=== PATIENT | female | born 1955 | race Hispanic/Latino ===

== ENCOUNTER → 2018-06-19 | Outpatient (CLI) | payer OTHER | END | disposition home or self-care (01) | LOC: RAH 14:48 | PROVIDERS: ATTEND Internal Medicine | DX: Z12.31 Encounter for screening mammogram for malignant neoplasm of breast (principal) | CPT/HCPCS: 77067 ==

== ENCOUNTER 2019-12-25 15:32 | Inpatient (IN) | payer OTHER, SELFPAY ==
[~2019-12-25] VITALS: Ht 152.4 cm; Wt 62.8 kg
[2019-12-25 17:11] LABS: BASOPHILS % (AUTO) 0.2 % (0.0-5.0); HEMATOCRIT 37.6 % (36-48); LYMPHOCYTES % (AUTO) 17.1 % (21.0-51.0); MEAN CORPUSCULAR HEMOGLOBIN 28.8 pg (27.0-33.0); MEAN CORPUSCULAR HGB CONC 32.4 g/dL (32.0-36.0); MEAN CORPUSCULAR VOLUME 88.9 fL (79-99); MONOCYTES % (AUTO) 6.2 % (3.0-13.0); NEUTROPHILS % (AUTO) 74.8 % (40.0-77.0); PLATELET COUNT (AUTO) 372 K/uL (130-400); RED BLOOD CELL COUNT(AUTO) 4.23 MIL/uL (4.00-5.50); RED CELL DISTRIBUTION WIDTH 13.8 % (11.0-15.5); WHITE BLOOD COUNT (AUTO) 10.9 K/uL (4.8-10.8)
[2019-12-25] MEDS ORDERED: ALBUTEROL INHALER 90MCG/INH IH ONE (17:21)
[2019-12-25 17:27] LABS: RAPID GROUP A STREP NEGATIVE (NEGATIVE)
[2019-12-25 17:31] LABS: CREATININE 0.8 mg/dL (0.5-1.5); POTASSIUM 3.2 mmol/L (3.5-5.1)
[2019-12-25 17:35] LABS: ALBUMIN 3.2 g/dL (3.5-5.0); BILIRUBIN,TOTAL 0.5 mg/dL (0.2-1.0); TOTAL PROTEIN, SERUM 7.8 g/dL (6.0-8.3)
[2019-12-25 17:36] LABS: ABG BASE EXCESS 3.7 mmol/L (-2.0-3.0); ABG HCO3 26.9 mmol/L (21.0-28.0); ABG OXYGEN SATURATION 96.4 % (95.0-99.0); ABG PCO2 37 mmHg (32-45)
[2019-12-25] MEDS ORDERED: AZITHROMYCIN 500MG+NS 250ML 250 ML IV ONE (17:47)
[2019-12-25] MEDS ORDERED: CEFTRIAXONE SODIUM 1 GM ONE (17:48)
[2019-12-25] MEDS ORDERED: ALBUTEROL INHALER 90MCG/INH IH PRN (20:30)
[2019-12-25] MEDS ORDERED: LACTULOSE 20 GM/30 ML UDCUP PO PRN (20:30)
[2019-12-25] MEDS: AZITHROMYCIN 500MG+NS 250ML 250 ML IV SCH (20:30)
[2019-12-25] MEDS ORDERED: ACETAMINOPHEN 325 MG TAB PO PRN ×2 (20:30)
[2019-12-25] MEDS ORDERED: ONDANSETRON HCL 4 MG/2 ML VIAL IV PRN (20:30)
[2019-12-25] MEDS: CEFTRIAXONE SODIUM 1 GM IV SCH (20:30)
[2019-12-25] MEDS: FAMOTIDINE 20MG TAB 20 MG TAB PO SCH (21:00)
[2019-12-25] MEDS ORDERED: FAMOTIDINE/PF 20 MG/2 ML VIAL IV ONE (21:51)
[2019-12-26] VITALS (7 sets, daily range): BP systolic 130–167; BP diastolic 66–89
[2019-12-26 05:53] LABS: BASOPHILS % (AUTO) 0.3 % (0.0-5.0); EOSINOPHILS % (AUTO) 0.3 % (0.0-8.0); HEMATOCRIT 32.9 % (36-48); MEAN CORPUSCULAR HEMOGLOBIN 29.4 pg (27.0-33.0); MEAN CORPUSCULAR HGB CONC 32.2 g/dL (32.0-36.0); MEAN CORPUSCULAR VOLUME 91.4 fL (79-99); MONOCYTES % (AUTO) 7.8 % (3.0-13.0); NEUTROPHILS % (AUTO) 64.8 % (40.0-77.0); PLATELET COUNT (AUTO) 370 K/uL (130-400); WHITE BLOOD COUNT (AUTO) 7.8 K/uL (4.8-10.8)
[2019-12-26 06:07] LABS: CREATININE 0.7 mg/dL (0.5-1.5); POTASSIUM 3.4 mmol/L (3.5-5.1)
[2019-12-26] MEDS: FAMOTIDINE 20MG TAB 20 MG TAB PO SCH ×2 (08:19→20:11)
[2019-12-26] MEDS: ENOXAPARIN SODIUM 40 MG/0.4 ML SYRINGE SQ SCH (08:20)
--- NOTE | 2019-12-26 09:00 | NUR ---
NOTIFIED DR STRINGER ON CONSULT
--- NOTE | 2019-12-26 10:57 | NUR ---
PATIENT AWAKE AND ALERT , DENIES ANY PAIN OR SHORTNESS OF BREATH .SHANTA CONT TO MONITOR
--- NOTE | 2019-12-26 11:00 | NUR ---
HAD NOTIFED DR RUBIN OF CONSULT , PER MD DR GARCIA WILL TAKE CARE OF CONSULT FOR HIM
[2019-12-26] MEDS ORDERED: METHYLPREDNISOLONE SOD SUCC 40MG/ML 1ML IVP SCH (13:00)
[2019-12-26] MEDS ORDERED: POTASSIUM CHLORIDE 20 MEQ ERTAB PO ONE ×2 (13:03→14:10)
[2019-12-26] MEDS: HYDROCHLOROTHIAZIDE 25 MG TABLET PO SCH (13:05)
--- NOTE | 2019-12-26 18:00 | NUR ---
DR HAIRSTON HERE FOR CONSULT
--- NOTE | 2019-12-26 18:05 | NUR ---
cm note met with patient and states resides at home with spouse, independent with ambulation and adls. has nebulizer, pt drives. referral made to [employer], and community resource packet provided to pt. with med [employer] assist information. pt verbalizes understanding. [facility] dc plan is back home. no dc needs. Addendum: 12/26/19 at 1808 by EVONNE CARRION CM Amended: Links added.
[2019-12-26] MEDS: CEFTRIAXONE SODIUM 1 GM IV SCH (20:11)
[2019-12-26] MEDS: AZITHROMYCIN 500MG+NS 250ML 250 ML IV SCH (20:11)
[2019-12-27] MEDS: HYDRALAZINE HCL 20 MG/ML VIAL IV PRN ×2 (00:15→18:12)
[2019-12-27 01:00] VITALS: BP 150/79
[2019-12-27 03:23] VITALS: BP 147/77
[2019-12-27 04:26] LABS: BASOPHILS % (AUTO) 0.1 % (0.0-5.0); EOSINOPHILS % (AUTO) 0.1 % (0.0-8.0); HEMATOCRIT 34.9 % (36-48); LYMPHOCYTES % (AUTO) 18.9 % (21.0-51.0); MEAN CORPUSCULAR HEMOGLOBIN 29.2 pg (27.0-33.0); MEAN CORPUSCULAR HGB CONC 32.7 g/dL (32.0-36.0); MEAN CORPUSCULAR VOLUME 89.3 fL (79-99); MONOCYTES % (AUTO) 7.1 % (3.0-13.0); NEUTROPHILS % (AUTO) 72.1 % (40.0-77.0); PLATELET COUNT (AUTO) 425 K/uL (130-400); RED BLOOD CELL COUNT(AUTO) 3.91 MIL/uL (4.00-5.50); RED CELL DISTRIBUTION WIDTH 13.6 % (11.0-15.5); WHITE BLOOD COUNT (AUTO) 7.2 K/uL (4.8-10.8)
[2019-12-27 04:40] LABS: CARBON DIOXIDE 25 mmol/L (21-32); CHLORIDE 105 mmol/L (101-111); CREATININE 0.6 mg/dL (0.5-1.5); GLOMERULAR FILTR. RATE CALC 107 mL/min (>60); GLUCOSE,RANDOM 126 mg/dL (70-105); PHOSPHORUS 3.3 mg/dL (2.5-4.9); POTASSIUM 3.7 mmol/L (3.5-5.1); SODIUM SERUM 140 mmol/L (136-145); UREA NITROGEN, BLOOD 12 mg/dL (7-18)
[2019-12-27 04:48] LABS: B-TYPE NATRIURETIC PEPTIDE 85 pg/mL (0-100)
--- NOTE | 2019-12-27 05:37 | NUR ---
0500: NOTIFIED OF CRITICAL D-DIMER RESULT OF 695 BY LAB 0515: HOSPITALIST YENNI PAGED BY ACETYLENE GAS COMPRESSOR Addendum: 12/27/19 at 0551 by SILVINO TENORIO RN RN 0545: HOSPITALIST YENNI, AJ, RETURNED CALL. NOTIFIED OF CRITICAL RESULT. ORDER FOR CT ANGIO-CHEST WITH PE PROTOCOL DUE TO ELEVATED D-DIMER
[2019-12-27] MEDS: FAMOTIDINE 20MG TAB 20 MG TAB PO SCH ×2 (08:09→20:00)
[2019-12-27] MEDS: HYDROCHLOROTHIAZIDE 25 MG TABLET PO SCH (08:09)
[2019-12-27] MEDS: ENOXAPARIN SODIUM 40 MG/0.4 ML SYRINGE SQ SCH (08:10)
[2019-12-27 08:29] VITALS: BP 162/84
[2019-12-27 11:52] VITALS: BP 159/72
[2019-12-27] MEDS ORDERED: IOHEXOL 350 MG/ML 100ML INFUS..BTL IV ONE (12:01)
[2019-12-27 17:02] VITALS: BP_SYST 124; BP_SYST 178; BP_DIAS 72; BP_DIAS 88
[2019-12-27 19:31] VITALS: BP 159/71
[2019-12-27] MEDS: AZITHROMYCIN 500MG+NS 250ML 250 ML IV SCH (20:00)
[2019-12-27] MEDS: CEFTRIAXONE SODIUM 1 GM IV SCH (20:00)
[2019-12-28] VITALS: BP 146/85
[2019-12-28 04:00] VITALS: BP 146/86
[2019-12-28 05:26] LABS: BASOPHILS % (AUTO) 0.3 % (0.0-5.0); LYMPHOCYTES % (AUTO) 24.7 % (21.0-51.0); MEAN CORPUSCULAR HEMOGLOBIN 28.9 pg (27.0-33.0); MEAN CORPUSCULAR HGB CONC 32.2 g/dL (32.0-36.0); MEAN CORPUSCULAR VOLUME 89.8 fL (79-99); MONOCYTES % (AUTO) 7.8 % (3.0-13.0); NEUTROPHILS % (AUTO) 64.5 % (40.0-77.0); PLATELET COUNT (AUTO) 489 K/uL (130-400); RED BLOOD CELL COUNT(AUTO) 4.01 MIL/uL (4.00-5.50); RED CELL DISTRIBUTION WIDTH 13.9 % (11.0-15.5); WHITE BLOOD COUNT (AUTO) 7.2 K/uL (4.8-10.8)
[2019-12-28 05:48] LABS: CREATININE 0.8 mg/dL (0.5-1.5); POTASSIUM 3.4 mmol/L (3.5-5.1)
[2019-12-28] MEDS ORDERED: LIDOCAINE HCL-MPF 1% 2ML VIAL IJ PRN (06:00)
[2019-12-28] MEDS ORDERED: POTASSIUM CHLORIDE 20 MEQ ERTAB PO PRN (06:00)
[2019-12-28] MEDS ORDERED: POTASSIUM CHLORIDE 10% ELIXIR 20 MEQ/15 ML UDCUP PO PRN (06:00)
[2019-12-28] MEDS ORDERED: POTASSIUM CHLORIDE 20MEQ/100ML 100 ML IV PRN (06:00)
--- NOTE | 2019-12-28 07:02 | NUR ---
0563: GLAZING MACHINE OPERATOR, MAGDALENA MONTGOMERY, PAGED BY SATELLITE DISH INSTALLER 7138: GLAZING MACHINE OPERATOR RETURNED CALL. NOTIFIED OF POTASSIUM:3.4. GLAZING MACHINE OPERATOR ORDERS TO INITIATE HYPOKALEMIA PROTOCOL.
[2019-12-28] MEDS: HYDROCHLOROTHIAZIDE 25 MG TABLET PO SCH (07:46)
[2019-12-28] MEDS: FAMOTIDINE 20MG TAB 20 MG TAB PO SCH (07:46)
[2019-12-28] MEDS: ENOXAPARIN SODIUM 40 MG/0.4 ML SYRINGE SQ SCH (07:47)
--- NOTE | 2019-12-28 08:00 | NUR ---
ASSESSMENT PT IS AAOX3 DENIES CP DENIES SOB DENIES NV NO COMPLAINTS AMBULATING IN ROOM. CALL LIGHT WITHIN REACH.
[2019-12-28 08:28] VITALS: BP 162/79
[2019-12-28] MEDS ORDERED: LEVO500T2 PO (11:19)
[2019-12-28 11:21] VITALS: BP 153/79
--- NOTE | 2019-12-28 13:30 | NUR ---
DISCHARGE INSTRUCTIONS GIVEN TO PATIENT, VERBALIZED UNDERSTANDING. AGREES TO SELF ISOLATE ORDERED, AGREES TO FOLLOW UP WITH PMD. AGREES TO TAKE MEDS ORDERED. PIV REMOVED CATH TIP INTACT. ALL BELONGINGS GATHERED, ALL QUESTIONS ANSWERED. AWAITING RIDE.
--- NOTE | 2019-12-28 13:30 | NUR ---
DOWN VIA WC TO VEHICLE
[2019-12-28 17:00] VITALS: BP 126/81
== END 2019-12-28 13:56 | disposition home or self-care (01) | DRG 999 ==
LOC: EDH 15:32 → EDHIP 15:33 → 2DH 12-26 00:57
PROVIDERS: ADMIT Internal Medicine; ATTEND Internal Medicine
DX: U07.1 COVID-19 (principal); J12.89 Other viral pneumonia; J98.11 Atelectasis; I10 Essential (primary) hypertension; Z90.710 Acquired absence of both cervix and uterus
CPT/HCPCS: 36415; 36600; 71045; 71275; 80048; 80053; 82550; 82728; 82803; 83605; 83735; 83880; 84100; 84145; 84484; 85025; 85378; 86140; 87040; 87633; 87635; 87804; 87880; 93005; G0378; J0360; J0456; J0696; J1650; J2920; J3490; Q9967

== ENCOUNTER → 2021-10-05 | Outpatient (CLI) | payer OTHER ==
[~2021-10-05] MED LIST: LEVO500T2 PO
== END | disposition home or self-care (01) ==
LOC: RAH 15:24
PROVIDERS: ATTEND Internal Medicine
DX: Z12.31 Encounter for screening mammogram for malignant neoplasm of breast (principal)
CPT/HCPCS: 77067

== ENCOUNTER → 2021-11-28 | Outpatient (CLI) | payer OTHER | END | disposition home or self-care (01) | LOC: RAH 14:27 | PROVIDERS: ATTEND Internal Medicine | DX: M19.071 Primary osteoarthritis, right ankle and foot (principal); M77.31 Calcaneal spur, right foot; M72.2 Plantar fascial fibromatosis | CPT/HCPCS: 73630 ==

== ENCOUNTER → 2023-02-28 | Outpatient (CLI) | payer MEDICARE | END | disposition home or self-care (01) | LOC: RAH 10:56 | PROVIDERS: ATTEND Internal Medicine | DX: Z12.31 Encounter for screening mammogram for malignant neoplasm of breast (principal) | CPT/HCPCS: 77067 ==